=== PATIENT | male | born 1990 | race Caucasian/White ===

== ENCOUNTER 2019-08-01 09:58 | Inpatient (IN) | payer MEDICAID ==
[~2019-08-01] VITALS: Ht 177.8 cm; Wt 68.0 kg
--- NOTE | 2019-08-01 10:15 | NUR ---
PT BIB [facility], FOR METH USE MEDICAL CLEARANCE. PTS MOTHER CALLED 911 DUE TO PT "NOT ACTING RIGHT" POSSIBLE METH USE PT ARRIVED HOME AT 0400 TODAY, PT HAS HX OF METH USE. PT AWAKE ALERT HOWEVER NOT ANSWERING ANY QUESTIONS PT HAS A BLANK STARE AND FOLLOWS SOME COMMANDS AND APPEARS TO BE COOPERATIVE HOWEVER DUE TO SAFETY CONCERNS PT WAS PLACED ON 4 POINT RESTRAINTS BY MEDICS. PT WAS LEFT ON RESTRAINTS FOR THE TIME BEING. VSS AT THIS TIME NSR AWAITING MD OSEGUERA AND ORDERS. PTS MOTHER AND UNCLE CLOSE TO BEDSIDE FOR ANY QUESTIIONS OR CONCERNS.
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
--- NOTE | 2019-08-01 10:47 | NUR ---
IST IV ATTEMPT UNSUCCESSFUL, PT CLENCHED HIS HAND & COCKED BACK HIS WRIST, MAKING IV NON-ADVANCEABLE. PT THEN SPOKE, STATING "JUST GIVE ME WATER OR FOOD OR WHATEVER, I DON'T NEED THIS." THEN STOPPED SPEAKING & WAS MORE COOPERATIVE W/ 2ND ATTEMPT W/ ADDITIONAL STAFF HOLDING HIS ARM STILL.
--- NOTE | 2019-08-01 10:53 | NUR ---
MED PER ORDER. FLUID BOLUS BEGAN.
[2019-08-01 11:04] LABS: PLATELET COUNT 206 x10^3mcL (130-400); RED CELL DISTRIBUTION WIDTH 12.8 % (11.5-14.5)
--- NOTE | 2019-08-01 11:06 | NUR ---
PT NOT ABLE TO URINATE AT THIS TIME. FLUIDS INFUSING AND WILL REASSESS PT
[2019-08-01 11:16] LABS: CALCIUM 9.2 mg/dL (8.5-10.1); CARBON DIOXIDE 27.2 mmol/L (21-32); CHLORIDE SERUM 103 mmol/L (98-107); CREATININE SERUM 0.9 mg/dL (0.7-1.3); GFR1 > 60 mL/min; GLUCOSE SERUM 92 mg/dL (74-106); SODIUM SERUM 140 mmol/L (136-145)
[2019-08-01 11:25] LABS: ALBUMIN 4.2 g/dL (3.4-5.0); ALKALINE PHOSPHATASE 58 U/L (46-116); ALT/SGPT 31 U/L (16-63); AST/SGOT 22 U/L (15-37); BILIRUBIN TOTAL 0.8 mg/dL (0.20-1.00); TOTAL PROTEIN, SERUM 7.6 g/dL (6.4-8.2)
--- NOTE | 2019-08-01 11:40 | NUR ---
PER RENEE MENSAH OK TOE REOMVE ALL RESTRAINTS AT THIS TIME. PT IS CALM AND COOPERATIVE
[2019-08-01 12:23] LABS: microscopic required? NO
[2019-08-01 12:38] LABS: urine erythrocyte NEGATIVE (NEGATIVE)
--- NOTE | 2019-08-01 12:38 | NUR ---
DR MENSAH AT BEDSIDE FOR REEVAL
--- NOTE | 2019-08-01 12:39 | NUR ---
PT PULLED OUT IV. DR MENSAH AWARE AND OK TO LEAVE IV LOCK OUT
[2019-08-01 13:01] LABS: AMPHETAMINE QUAL UR POSITIVE (See below)
--- NOTE | 2019-08-01 13:03 | NUR ---
RAMÓN IM HELD AT THIS TIME AND DR MENSAH AWARE DUE TO PT SLEEPING AT THIS TIME AND FAMILY AT BEDSIDE NOT WANTED RN TO WAKE PT UP
--- NOTE | 2019-08-01 13:12 | NUR ---
PT LAYING IN GURNEY, ASLEEP, EASILY AROUSABLE TO GENTLE STIMULI. PT CALM, COOPERATIVE WITH UPDATING VITAL SIGNS. PT ANSWERING QUESTIONS APPROPRIATELY, BUT IS NOT ORIENTED TO PLACE, ORIENTED TO SELF. ASKED PT HOW HE'S FEELING, PT STATES "I'M POPPIN". PT TURNED BACK OVER IN GURNEY AND CLOSED HIS EYES. RESP E/U, NAD NOTED. AUNT AT BEDSIDE.
--- NOTE | 2019-08-01 13:51 | NUR ---
DR MENSAH SPEAKING WITH PT'S PARENTS AT THE BEDSIDE REGARDING PLAN OF CARE.
--- NOTE | 2019-08-01 13:57 | NUR ---
PT'S PARENTS AND DR. MENSAH AT BEDSIDE TO DISCUSS FURTHER PSYCHIATRIC CARE. INITIALLY PT WAS NOT COOPERATING WITH ANSWERING MD'S QUESTIONS. PT WOULD JUST LAUGH WITH HIS EYES CLOSED, TO FALL BACK ASLEEP. PT'S MOTHER BEGAN TO CRY, PT IMMEDIATELY AWOKE AND OPENED HIS EYES, MADE EYE CONTACT WITH MOTHER, AND STATED "MOM WHAT'S WRONG?". DR. MENSAH DISCUSSING PLAN OF FOR PT TO SPEAK WITH TELE PSYCH, PT AGREED. TELE PSYCH MONITOR SET UP IN ROOM.
--- NOTE | 2019-08-01 14:54 | NUR ---
PTS MOTHER ASKING "HOW LONG IS THIS PROCESS GOING TO TAKE" MOTHER IS ASKING "HOW MANY HOURS DO I HAVE BEFORE ALL OF THIS IS DONE FOR ME TO SLEEP BEFORE I HAVE TO WATCH HIM FOR 24 HRS" I ADVISED MOTHER OF THE INFORMATION DR MENSAH SHARED WITH HER AND THE POC, A TELE PSYCH CONSULT HAS BEEN ORDERED AND WE ARE WAITING FOR THE PSYCHIATRIST TO SPEAK TO PT LONG PT IS WILLING TO COOPERATE AND SPEAK WITH THEM. MOTHER STATED SHE WANTED HELP FOR HER SON I ADVISED MOTHER OF [facility] THAT SHE COULD ALSO DRIVE PT TO [place] IF SHE WOULD LIKE ONCE DR MENSAH DISCHARGED PT. MOTHER SHRUG SHOULDERS AND SAID "HE'S NOT GOING TO GO IN THERE" UNCLE STATES WE HAVE NOT SEEN PTS BEHAVIOR AT HOME AND JUST BECAUSE HE'S CALM HERE DOESN'T MEAN THATS HOW HE REALLY IS. I ADVISED WE CAN NOT HOLD PT AGAINST HIS WILL AND THAT IF PT WAS BEING AGRESSIVE AT HOME THEY SHOULD CALL THE LOCAL POLICE DEPT. PER UNCLE POLICE DID GO TO PTS HOME TODAY BUT "NOTHING WAS DONE". I CALLED [place] [facility]. TO ADVISE DISPATCH FAMILY WOULD LIKE AN OFFICER TO COME TO HOSPITAL TO SPEAK TO THEM REGARDING A POSSIBLE 5150 HOLD, DISPATCH STATED THEY WILL TRY TO GET AN OFFICER TO COME IN AND TALK TO PT AND FAMILY.
--- NOTE | 2019-08-01 15:06 | NUR ---
[employer] OFFIC[employer] [facility] AND OFFICER MARGARITA AT BEDSIDE SPEAKING WITH PT.
--- NOTE | 2019-08-01 15:21 | NUR ---
PT LAYING IN LEFT LATERAL POSITION IN [place]. ASKED PT TO LAY ON HIS BACK TO UPDATE HIS VITALS, PT COOPERATED WITHOUT HESITATION. PT ORIENTED TO SELF AND PLACE, PT UNSURE OF DATE AND STATED "BARACK OBAMA" WHEN ASKED PT WHO THE PRESIDENT WAS. PT ANSWERING ALL QUESTIONS APPROPRIATELY AND OPENING EYES SPONTANEOUSLY.
--- NOTE | 2019-08-01 15:27 | NUR ---
TELE PSYCH PSYCHIATRIST SPEAKING WITH PT AND HIS MOTHER AND UNCLE AT THIS TIME.
--- NOTE | 2019-08-01 15:27 | NUR ---
PER [employer] OFFICER MARGARITA, THEY ARE PREVIOUSLY SPOKE WITH MOTHER REGARDING WRITING A 5150 HOLD. CURRENTLY STATES THAT THEY WILL HOLD OFF ON WRITING THE HOLD AT THIS TIME BECAUSE PT IS CURRENTLY BEING EVALUATED WITH TELEPSYCH.
--- NOTE | 2019-08-01 15:38 | NUR ---
TELEPSYCH CONSULT COMPLETED.
--- NOTE | 2019-08-01 15:41 | NUR ---
5150 HOLD WRITTEN BY [employer]. THEY STATE IT IS PER STATEMENTS MADE BY PT'S MOTHER & THEY ALSO OVERHEARD THE TELEPSYCH MD SAY THAT HE WAS GOING TO RECOMMEND A HOLD. ORIGINAL PLACED ON CHART. ORIGINAL WAS WRITTEN ON A FORM W/ COPIER SMUDGES ON IT & THUS DOES NOT LOOK LIKE AN ORIGINAL. EDUAR CEDILLO VERIFIED W/ ME WHEN THEY HANDED IT TO ME THAT IT IS THE ORIGINAL. POST-IT PLACED ON IT IDENTIFYING IT THE ORIGINAL.
--- NOTE | 2019-08-01 16:18 | NUR ---
PT SITTING UP IN GURNEY, AWAKE, ORIENTED TO SELF AND PLACE, WITH HIS MOTHER AT BEDSIDE.
--- NOTE | 2019-08-01 16:39 | NUR ---
PT'S MOTHER REPORTS THAT SHE IS GOING TO STEP OUT TO CHARGE HER PHONE IN THE CAR. ASKS THAT WE CALL HER IF WE NEED ANYTHING.
--- NOTE | 2019-08-01 17:29 | NUR ---
PT CHANGED INTO PT GOWN BY ZACHARY MCCALLUM. ALL PT BELONGINGS PLACED IN RADIO ROOM IN LABELED BAG. PT LAYING COMFORTABLY IN GURNEY, RESP E/U, CALM AND COOPERATIVE. NAD NOTED.
--- NOTE | 2019-08-01 17:30 | NUR ---
CALLED DELMA IN PHARMACY FOR SEROJACEK.
--- NOTE | 2019-08-01 17:42 | NUR ---
PT MEDICATED PER MD ORDER. PT VERBALIZED UNDERSTANDING OF MEDICATION PRIOR TO ADMINISTRATION.
--- NOTE | 2019-08-01 17:52 | NUR ---
PT GIVEN CRACKERS AT THIS TIME. LET HIM KNOW THAT HIS MOTHER TOLD US THAT SHE WOULD BE GOING TO GET HIM FOOD AND SHOULD RETURN SHORTLY WITH FOOD FOR HIM. SPOKE WITH PT THAT HE HAS BEEN PLACE ON A 72-HOUR 5150 HOLD AT THIS TIME AND EDUCATED PT ON WHAT THAT MEANT. PT VERBALIZED UNDERSTANDING. PT NOTED TO STILL HAVE HIS PERSONAL SOCKS AND PERSONAL HAT ON. PT REQUESTING TO KEEP HAT AND SOCKS ON AT THIS TIME. SPOKE WITH PT IN REGARDS TO KEEPING HIS PERSONAL BELONGINGS AND THE TYPICAL PROTOCOL FOR REMOVING ALL PERSONAL BELONGINGS, PT VERBALIZED UNDERSTANDING BUT ASKING IF HE COULD KEEP HIS HAT AND SOCKS ON. PT AGREED THAT HAT AND SOCKS WOULD NOT BECOME A PROBLEM, AND IF THEY DID HE WOULD BE OKAY WITH US REMOVING THEM. PT SHOWN HOW TO USE CALL LIGHT AND TO OPERATE TV. LIGHTS TURNED DOWN FOR COMFORT. PT REMAINS IN DIRECT SIGHT OF NURSE'S STATION.
--- NOTE | 2019-08-01 18:13 | NUR ---
PT'S MOTHER RISHABH BROUGHT PT BLAZE IN THE BOX. PT SITTING UP IN GURMYSTIC TO EAT. UPDATED MOTHER ON PT'S PLAN OF CARE AND PROCESS OF BEHAVIORAL HEALTH PLACEMENT. MOTHER AGREED TO PLAN OF CARE.
--- NOTE | 2019-08-01 18:26 | NUR ---
MOVED TO BED 3 IN DIRECT OBSERVATION OF NSG STATION.
--- NOTE | 2019-08-01 19:11 | NUR ---
REPORT GIVEN TO ZULEMA CEDILLO, TO ASSUME CARE OF PT.
--- NOTE | 2019-08-01 19:15 | NUR ---
PER MARISSA KEATING PHONE NUMBER FOR CONTACT .
--- NOTE | 2019-08-01 19:15 | NUR ---
PT SLEEPING ON GURNEY IN NAD. PT BREATHING EVEN AND UNLABORED. PT NOTED MOVING AROUND IN GURNEY WITH EASE AND NO ASSISTANCE. PT HAT AND SOCKS REMAIN ON PT AT THIS TIME. VERBAL CONTRACT WITH PT AND MOTHER FOR PT BELONGINGS STILL INTACT, ACKNOWLEDGE THAT ITEMS WILL BE REMOVED IF ITEMS BECOME AN ISSUE. PT EASILY AROUSABLE TO VOICE AND LIGHT TACTILE STIMULI. PT IS COOPERATIVE BUT APPEARS ANXIOUS UPON BEING WOKEN UP. PT ANSWERING SIMPLE QUESTIONS WITH "YES" AND "OKAY". PT DENIES PAIN. CURTAIN OPEN AND ABLE TO VIEW PT FROM NURSING STATION. BED IN LOWEST POSITION. LIGHTS REMAIN OFF FOR PT COMFORT. MOTHER AT BEDSIDE. SAFETY MEASURES IN PLACE. WILL CONTINUE TO MONITOR.
--- NOTE | 2019-08-01 19:20 | NUR ---
PT MOTHER AT BEDSIDE STATING "IM GOING TO TALK TO MY OTHER SON AND GET A BLANKET THEN I WILL COME BACK"
--- NOTE | 2019-08-01 20:28 | NUR ---
PT GOT UP FROM [place] AND NOTED STANDING AT BEDSIDE. PT EATING SANDWHICH AND NOTED DRINKING MILK. PT BEGAN WALKING OUT OF ROOM. ASKED PT IS HE NEEDED ASSISTANCE. PT POINTING AT A DIFFERENT PTS BED. PT REDIRECTRED TOWARDS ROOM AND PT GOT BACK IN GURNEY WITH NO ASSISTANCE. PT STATING "YOU THINK I COULD GET SOME CRACKERS". PT LAYING ON GURNEY IN NAD, BREATHING EVEN AND UNLABORED. PT AWAKE AND ALERT, SPEECH IS CLEAR. PT PROVIDED WITH CRACKERS AT THIS TIME. WILL CONTINUE TO MONITOR. BED IN LOWEST POSITION. CURTAIN OPEN AND ABLE TO VISUALIZE PT FROM NURSING STATION. SAFETY MEASURES IN PLACE.
--- NOTE | 2019-08-01 21:31 | NUR ---
PT MOTHER AT BEDSIDE. PT MOTHER ASKING "IF HE WAKES UP WHEN IM HERE IS IT OKAY IF I WASH HIS FEET AND CHANGE HIS SOCKS". PROVIDED HYGIENE WIPES TO MOTHER. MOTHER EXPRESSED GRATITUDE. PT SLEEPING IN NAD. CURTAIN OPEN AND ABLE TO VISUALIZE PT FROM NURSING STATION. BED IN LOWEST POSITION. SAFETY MEASURES IN PLACE. WILL CONTINUE TO MONITOR.
--- NOTE | 2019-08-01 21:45 | NUR ---
PT MOTHER USING HYGIENE WIPES TO CLEAN PTS FEET AT THIS TIME. MOTHER PLACED SOCKS BACK ON PT.
--- NOTE | 2019-08-01 22:08 | NUR ---
PT RESTING ON GURNEY, AWAKE AND ALERT. PT SPEAKING FULL CLEAR SENTENCES. PT ANSWERING QUESTIONS APPROPRIATELY. PT MOTHER STATES "IM GOING ON ANOTHER FOOD RUN". PT STATES "SHES GOING TO BLAZE IN THE BOX, I EAT ALOT". PT IS CALM AND COOPERATIVE. CURTAIN OPEN AND ABLE TO VISUALIZE FROM NURSING STATION. BED IN LOWEST POSITION. WILL CONTINUE TO MONITOR.
--- NOTE | 2019-08-01 23:40 | NUR ---
PT SITTING UP IN BED EATING BLAZE IN THE BOX THAT WAS BROUGHT IN BY MOTHER. PT IS CALM AND COOPERATIVE. BREATHING EVEN AND UNLABORED. PT AWAKE AND ALERT, SPEECH IS CLEAR. MOTHER AT BEDSIDE. CURTAIN OPEN AND ABLE TO VISUALIZE PT FROM NURSING STATION. BED IN LOWEST POSITION. WILL CONTINUE TO MONITOR.
--- NOTE | 2019-08-01 23:56 | NUR ---
PT REQUESTING MEDICATION FOR ANXIETY. MD GÓMEZ MADE AWARE. AWAITING NEW ORDERS AT THIS TIME
--- NOTE | 2019-08-02 00:21 | NUR ---
PER DR GÓMEZ, PT WILL RECEIEVE RECOMMENED SEROQUEL Q 8 HOURS BUT HE WILL NOT ORDERS OTHER MEDICATION WHEN PT IS ASKING "I NEED ANXIETY MEDICATION". M0THER INFORMED OF DOCTORS PLAN OF CARE AND THAT WE ARE STILL WAITING FOR PLACEMENT. PT MOTHER STATES SHE IS LEAVING FOR THE NIGHT AND WILL RETURN IN THE MORNING OR IF PT GETS PLACEMENT AND REQUESTS TO BE CALLED IF PLACEMENT IS FOUND AND PRIOR TO TRANSFER. PT IS SLEEPING IN NAD, BREATHING EVEN AND UNLABORED. CURTAIN OPEN AND ABLE TO VISUALIZE PT FROM NURSING STATION. BED IN LOWEST POSITION. WILL CONTINUE TO MONITOR.
--- NOTE | 2019-08-02 01:30 | NUR ---
PT SLEEPING ON GURNEY IN NAD, EASILY AROUSABLE. PT IN NAD, BREATHING EVEN AND UNLABORED. PT OBSERVED MOVING AROUND ON GURNEY WITH NO ASSISTANCE. SAFETY MEASURES IN PLACE. WILL CONTINUE TO MONITOR. CURTAIN OPEN, ABLE TO VISUALIZE PT FROM NURSING STATION. BED IN LOWEST POSITION.
--- NOTE | 2019-08-02 02:15 | NUR ---
PT MEDICATED PER MD ORDERS. PT EASILY AROUSABLE AND IS CALM AND COOPERATIVE. PT ANSWERING SIMPLE QUESTIONS APPROPRIATELY. BREATHING EVEN AND UNLABORED. SPEECH REMAINS CLEAR. MOTHER LEFT BEDSIDE. PT LAID BACK DOWN AFTER MEDICATION ADMINISTRATION AND IS NOTED SLEEPING IN RIGHT SIDE LAYING POSITION. ASKED PT IF HE WANTED A WARM BLANKET AND PT STATES "NO IM OKAY". BED IN LOWEST POSITION. CURTAIN OPEN AND ABLE TO VISUALIZE PT FROM NURSING STATION. SAFETY MEASURES IN PLACE. WILL CONTINUE TO MONITOR.
--- NOTE | 2019-08-02 03:22 | NUR ---
PT AMBULATED TO RESTROOM WITH STEADY GAIT ACCOMPANIED BY ME. PT AMBULATED BACK TO BED 3 AT THIS TIME. PT NOTED SLEEPING IN NAD. BREATHING EVEN AND UNLABORED. CURTAIN OPEN AND ABLE TO VISUALIZE FROM NURSING STATION. BED IN LOWEST POSITION. WILL CONTINUE TO MONITOR.
--- NOTE | 2019-08-02 04:50 | NUR ---
PT EASILY AROUSABLE AND SPEAKING CLEARLY. PT FOLLOWING SIMPLE COMMANDS AND REMAINS CALM AND COOPERATIVE. PT SLEEPING IN NAD, BREATHING EVEN AND UNLABORED. CURTAIN OPEN AND ABLE TO VISUALIZE PT FROM NURSING STATION. BED IN LOWEST POSITION. SAFETY MEASURES IN PLACE. WILL CONTINUE TO MONITOR.
--- NOTE | 2019-08-02 05:40 | NUR ---
PT NOTED MOVING AROUND ON GURNEY WITHOUT ASSISTANCE. PT SLEEPING, BREATHING EVEN AND UNLABORED. PT EASILY AROUSABLE. ABLE TO VISUALIZE PT FROM NURSING STATION. WILL CONTINUE TO MONITOR.
--- NOTE | 2019-08-02 06:50 | NUR ---
PT SLEEPING ON GURNEY IN NAD, EASILY AROUSABLE. PT IS CALM AND COOPERATIVE. SPEECH IS CLEAR. CURTAIN OPEN AND ABLE TO VISUALIZE PT FROM NURSING STATION. PT BREATHING EVEN AND UNLABORED. WILL CONTINUE TO MONITOR.
--- NOTE | 2019-08-02 07:25 | NUR ---
REPORT RECEIVED FROM ZULEMA CEDILLO, TO ASSUME CARE OF PT.
--- NOTE | 2019-08-02 08:22 | NUR ---
TELE PSYCH AT END OF BED FOR EVALUATION. MOTHER AT BEDSIDE. PT EASILY AROUSABLE WITH VERBAL STIMULI. PT NOT WANTING TO ANSWER ANY QUESTIONS AT THIS TIME. MOTHER STS THAT PT DID VERBALIZE THAT HE WANTED TO HARM HIMSELF BUT NOT OTHERS. PT PROVIDED BREAKFAST AND STS THAT HE WANTS IT BUT CANNOT EAT IT RIGHT NOW. WILL CONTINUE TO MONITOR. VSS. RESP E/U. WILL CONTINUE TO MONITOR.
--- NOTE | 2019-08-02 08:50 | NUR ---
TELE PSYCH IN PROGRESS.
--- NOTE | 2019-08-02 09:16 | NUR ---
TELE PSYCH COMPLETE.
--- NOTE | 2019-08-02 09:27 | NUR ---
SPOKE TO PSYCH DR. QUINTANILLA AND IS CONTINUING THE HOLD. DR. MIRELES MADE AWARE.
--- NOTE | 2019-08-02 10:59 | NUR ---
XRAY AT BEDSIDE.
--- NOTE | 2019-08-02 11:08 | NUR ---
ADMITING DOCTOR AT BEDSIDE FOR MSE. PT NOT ANSWERING ANY QUESTIONS AT THIS TIME BUT HAS EYES OPEN AND ARMS CROSSED ACROSS CHEST.
--- NOTE | 2019-08-02 12:48 | NUR ---
PT PROVIDED WITH LUNCH TRAY. PTS FAMILY AT BEDSIDE PT IN NO DISTRESS LYING IN BED COMFORTABLY.
--- NOTE | 2019-08-02 16:00 | NUR ---
MOTHER AND PT REFUSING MEDICATION AT THIS TIME.
--- NOTE | 2019-08-02 18:14 | NUR ---
DR. HOFFMAN MADE AWARE OF PT REFUSAL. MOTHER INFORMED PT WILL BE TAKEN UPSAIRS AT CHANGE OF SHIFT.
--- NOTE | 2019-08-02 18:40 | NUR ---
PT REFUSING ALL MEDS AND LAB DRAWS. DR. KWAN MADE AWARE.
--- NOTE | 2019-08-02 19:02 | NUR ---
REPORT GIVEN TO BHARGAVI CEDILLO, TO ASSUME CARE OF THIS PT.
--- NOTE | 2019-08-02 19:30 | NUR ---
RECEIVED PT FROM ED VIA [facility], PT IS AWAKE AN ALERT BUT REFUSES TO ANSWER ANY QUESTIONS. NO S/S OF PAIN AND SOB NOTED. NO IV ACCESS AT THIS TIME. PT REFUSED TO BE ASSESSED, REFUSED TO HAVE IV INSERTION, AND REFUSED MRSA SWAB. PT'S MOTHER AT BEDSIDE. SIDE RAILS UPX2. CALL LIGHT ON REACH. HOB ELEVATED AT 30 DEG. SITTER AT BEDSIDE. PRIMARY NURSE FLY AT BEDSIDE FOR CONTINUITY OF CARE
[2019-08-02 19:47] VITALS: BP 102/55
[2019-08-02 19:53] VITALS: Ht 177.8 cm; Wt 68.0 kg
--- NOTE | 2019-08-02 20:32 | NUR ---
PT REFUSED IV INSERTION AND MRSA SWAB , DR JIANG MADE AWARE.SITTER AT THE BEDSIDE FOR SAFETY. WILL CONTINUE TO MONITOR.
--- NOTE | 2019-08-02 21:30 | NUR ---
RESTING QUIETLY IN BED AT THIS TIME, WITH EYES CLOSED, APPEARS ASLEEP, EASILY AROUSABLE. NO ACUTE DISTRESS NOTED. SITTER AT THE BEDSIDE FOR SAFETY. WILL CONTINUE TO MONITOR.
[2019-08-03 04:45] VITALS: BP 101/52
--- NOTE | 2019-08-03 06:10 | NUR ---
ATTEMPTED TO RE-INSERT IV, PT REFUSED, NO IV ACCESS. DR JIANG AWARE. REMAINS ON 5150 HOLD, SITTER AT THE BEDSIDE FOR SAFETY. NO COMPLAINTS OR VERBAL RESPONSE NOTED. RESP. EVEN AND UNLABORED. NO ACUTE DISTRESS NOTED. VOIDING FREELY. WILL CONTINUE TO MONITOR.
--- NOTE | 2019-08-03 07:12 | NUR ---
RECEIVED PT FROM THERMAL CUTTING TRACER MACHINE OPERATOR NURSE. PT RESTING IN BED, AWAKE BUT NOT RESPONDING VERBALLY TO QUESTIONS AT THIS TIME. NO SIGNS OF ACUTE DISTRESS NOTED. NO IV ACCESS, INFORMED BY THERMAL CUTTING TRACER MACHINE OPERATOR NURSE THAT DOCTOR IS AWARE. BED IN LOWEST POSITION AND CALL LIGHT WITHIN REACH. SITTER AT BEDSIDE. WILL CONTINUE TO MONITOR.
[2019-08-03 09:34] VITALS: BP 98/52
--- NOTE | 2019-08-03 12:32 | NUR ---
PT SITTING UPRIGHT IN BED HAVING LUNCH, AWAKE/ALERT, RESP E/U ON RA. PT STILL REMAINS VERBALLY UNRESPONSIVE, CALM AT THE MOMENT, NO ACUTE DISTRESS NOTED. BED IN LOWEST POSITION AND CALL LIGHT WITHIN REACH. SITTER AT BEDSIDE. WILL CONTINUE TO MONITOR.
--- NOTE | 2019-08-03 14:23 | NUR ---
Discount pharmacy card and list to low cost medical clinics given to patient by Jenny Antoine.
--- NOTE | 2019-08-03 17:55 | NUR ---
PT IN BED SLEEPING, AROUSABLE, RESP E/U ON RA. NO SIGNS OF ACUTE DISTRSS NOTED AT THIS TIME. PT REMAINS W/ NO IV ACCESS. BED IN LOWEST POSITION AND CALL LIGHT WITHIN REACH. SITTER AT BEDSIDE. WILL ENDORSE TO ONCOMING NURSE.
--- NOTE | 2019-08-03 20:00 | NUR ---
RECEIVED PT IN BED, RESTING QUIETLY. NO VERBAL RESPONSE AT THIS TIME. ON 5150 HOLD, SITTER AT THE BEDSIDE FOR SAFETY. RESP. EVEN AND UNLABORED. NO ACUTE DISTRESS NOTED. REFUSED VITAL SIGNS CHECK. NO EVIDENCE OF ANY DISCOMFORT NOTED. ABLE TO MOVE ALL EXTS. NO IV ACCESS, REFUSED INSERTION. MD AWARE.WILL CONTINUE TO MONITOR.
--- NOTE | 2019-08-03 21:45 | NUR ---
AWAKE, REQUESTING MEDICATION FOR ANXIETY. DR MANN NOTIFIED. ATIVAN PO GIVEN ORDERED. WILL CONTINUE TO MONITOR.
--- NOTE | 2019-08-03 23:25 | NUR ---
PT REFUSED HAVE V/S TAKEN NURSE BILL AWARE .
--- NOTE | 2019-08-04 02:35 | NUR ---
EYES CLOSED, APPEAR ASLEEP, EASILY AROUSABLE. RESP. EVEN AND UNLABORED. NO ACUTE DISTRESS NOTED. WILL CONTINUE TO MONITOR.
--- NOTE | 2019-08-04 06:17 | NUR ---
SLEPT WELL. STILL NON COMPLIANT WITH CARE. RESP. REFUSED VS CHECK. REMAINS ON 5150 HOLD, SITTER AT THE BEDSIDE FOR SAFETY. NO COMPLAINTS NOTED AT THIS TIME. NO EVIDENCE OF ANY DISCOMFORT NOTED AT THIS TIME. WILL CONTINUE TO MONITOR.
--- NOTE | 2019-08-04 08:32 | NUR ---
At 0720, recieved patient from night nurse. Patient appears to be resting with eyes closed. One to one sitter with patient. At 0815, patient is awake, alert, and unable to guage orientation as patient is staring at nurse. No verbal response to questions or comments. Has not eaten breakfast. Continuing to observe closely.
--- NOTE | 2019-08-04 12:01 | NUR ---
Initial Nutrition Assessment: 246/B MARCH PIERO IA HR Dx: Suicidal, danger to self, 5150 PMHx: Schizophrenia PSHx: none Labs: (08/01) ALK P 58H Meds: Colace, morphine, norco, zofran Diet: Regular PO Intake: (08/03) breakfast 90% Ht: 177.8 cm (70") Wt: 68 kg (149#) BMI: 21.5 kg/m2 Bed scale: 68 kg IBW: 166# (75 kg) %IBW: 89 UBW: unable to access Age: 28/M Food Allergies: NKFA Skin: intact Von: 21 Edema: none GI: Last BM: unknown Per H&P, Pt is a 28 years old with PMH of schizophrenia who brought in by EMS due to altered mental status today. The patient has a history of meth addiction and heroin abuse for ~14 years. RDN Visit (08/04): Patient was not ready to respond or communicate with me. Per sitter, patient refuses everything, even vital signs. Per sitter, patient has had only of his milk for breakfast this morning. Per RN Jerilyn, patient refuses to talk with everyone and therefore she is not aware about symptoms likes N/V/D/C. Problem with: N/V/D/C: unable to access Problems with: Chewing/Swallowing: unable to access Current appetite: unable to access Recent wt change: unable to access %wt change: N/A Vitamin/Supplement use: unable to access Special diet at home: unable to access Physical activity: unable to access Nutrition education given: not possible at this time as patient refuses to talk, does not reply Food-drug interactions: Colace- high fiber w/1086-9443 ml fluids Education given: n/a Estimated Nutritional Needs Based on current body weight 68 kg Energy: 4194-1250 kcal/d (25-30 kcal/kg) Protein: 68-82 g/d (1.0-1.2 g/kg) - preserve LBM Fluid: 4649-3566 ml/d (1 ml/kcal) or per doctor Nutrition Diagnosis 1. Inadequate oral intake related to patient not wanting to eat, possible poor appetite as evidenced by report from sitter. Intervention 1. Recommend continuing regular diet at this time. Monitor/Evaluate Goal: PO intake at least 75% of estimated needs Monitor: PO intake, Labs, GI function F/U in 3-5 days as moderate risk
--- NOTE | 2019-08-04 12:01 | NUR ---
1. Recommend continuing regular diet at this time.
--- NOTE | 2019-08-04 16:11 | NUR ---
PATIENT REMAINS QUIET. NO SPEAKING. DRINKING WATER AND FLUIDS BUT REFUSING TO EAT. AMBULATES TO BATHROOM FOR TOILET NEEDS. CONTINUING TO OBSERVE PATIENT CLOSELY.
--- NOTE | 2019-08-04 16:46 | NUR ---
PATIENT ASKED IF HIS MOTHER WAS GOING TO BE COING IN TODAY. HE SAID THAT HE WOULD LIKE HER TO COME IN. CALLED PATIENT'S MOTHE PER PHONE; SHE SPOKE BRIEFLY WITH PATIENT. PATIENT REQUESTED ANXIETY MEDICATION. CONTACTING VETERINARY PRACTICE MANAGER KAPIL FOR ORDERS. PATIENT HAS REFUSED VITAL SIGNS ASSESSMENT. PULLS COVERS OVER HEAD AT TIMES WHEN APPROACHED.
--- NOTE | 2019-08-04 18:00 | NUR ---
At 1730 patient's mother in room. Patient ate outside food brought in by mother. Refused all meds. Refused vital sign checks. Did not want to take Ativan even though he had requested antianxiety medication earlier. Ambulates to bathroom for toilet needs. Remains withdrawn, refusing to speak. Patient's mother is in room and crying. Will endorse care to night nurse.
--- NOTE | 2019-08-04 19:00 | NUR ---
REPORT RECEIVED FROM DAY SHIFT RN. PATIENT WAS SEEN AND IS RESTING COMFORTABLY IN BED W/ MOTHER AND SITTER AT BEDIDE. PATIENT IS REFUSING TO SPEAK. WHEN SPOKEN TO, PATIENT JUST STARES. NO APPARENT DISTRESS NOTED. BREATHING EVEN AND UNLABORED ON ROOM AIR. NO SOB OR RESP DISTRESS NOTED. NO INDICATONS OF CHEST PAIN. NO IV ACCESS. PATIENT IS REFUSING. PATIENT IS EATING AT THIS TIME. COMFORT AND SAFETY MEASURES IN PLACE. CALL LIGHT IS WITHIN REACH. BED IS LOCKED AND IN THE LOWEST POSITION. WILL CONTINUE TO MONITOR.
--- NOTE | 2019-08-04 19:45 | NUR ---
DR DAVIS IN TO SEE PATIENT
--- NOTE | 2019-08-04 21:03 | NUR ---
PATIENT REFUSING SCHEDULED ATIVAN PO. TRIED TO WAKE PATIENT UP. PATIENT JUST IGNORED AND TURNED AWAY. NO DISTRESS NOTED. BREATHING EVEN. SITTER AT BEDSIDE. SAFETY MEASURES IN PLACE. CALL LIGHT IS WITHIN REACH. WILL CONTINUE TO MONITOR.
--- NOTE | 2019-08-04 22:14 | NUR ---
PATIENT IS NOW REQUESTING ATIVAN. ADMINISTERED SCHEDULED ATIVAN PRESCRIBED. NO DISTRESS NOTED. CALL LIGHT WITHIN REACH. SITTER AT BEDSIDE. SAFETY MEASURES IN PLACE. WILL CONTINUE TO MONITOR.
--- NOTE | 2019-08-05 00:11 | NUR ---
RESTING IN BED W/ EYES CLSOED. NO DISTRESS NOTED. BREATHING EVEN AND UNLABORED. NO SOB NOTED. SAFETY MEASURES IN PLACE. SITTER AT BEDSIDE. CALL LIGHT IS WITHIN REACH. WILL CONTINUE TO MONITOR.
--- NOTE | 2019-08-05 02:34 | NUR ---
RESTING IN BED WITH EYES CLOSED. NO DISTRESS NOTED. BREATHING EVEN AND UNLABORED. NO SOB OR RESP DISTRESS NOTED. SITTER AT BEDSIDE. CALL LIGHT IS WITHIN REACH. WILL CONTINUE TO MONITOR.
--- NOTE | 2019-08-05 05:19 | NUR ---
REFUSED AM V/S TO BE TAKEN
--- NOTE | 2019-08-05 05:49 | NUR ---
RESTED IN LONG INTERVALS THROUGHOUT THE NIGHT. NO ACUTE CHANGES NOTED. PATIENT REMAINS TO NOT SPEAK. NONCOMPLIANT WITH CARE. REFUSED LABS AND V/S. NO IV ACCESS. BREATHING EVEN AND UNLABORED ON ROOM AIR. NO SOB NOTED. NO INDICATIONS OF CHEST PAIN OR PAIN. SITTER AT BEDSIDE. COMFORT AND SAFETY MEASURES IN PLACE. BED IS LOCKED AND IN THE LOWEST POSITION. SIDE RAILS UP X2. CALL LIGHT IS WITHIN REACH. WILL ENDORSE CARE TO DAY SHIFT RN.
--- NOTE | 2019-08-05 06:33 | NUR ---
RESTED IN LONG INTERVALS THROUGHOUT THE NIGHT. NO ACUTE CHANGES NOTED. PATIENT REMAINS TO NOT SPEAK. NONCOMPLIANT WITH CARE. REFUSED V/S. NO IV ACCESS. BREATHING EVEN AND UNLABORED ON ROOM AIR. NO SOB NOTED. NO INDICATIONS OF CHEST PAIN OR PAIN. SITTER AT BEDSIDE. COMFORT AND SAFETY MEASURES IN PLACE. BED IS LOCKED AND IN THE LOWEST POSITION. SIDE RAILS UP X2. CALL LIGHT IS WITHIN REACH. WILL ENDORSE CARE TO DAY SHIFT RN.
--- NOTE | 2019-08-05 07:52 | NUR ---
Recieved patient from night nurse at 0710. Patient was sleeping with regular respirations. Patient continues to remain noncommunicative. At 0730 patient ate breakfast and showered. Patient continues to refuse vital signs and is not speaking.
--- NOTE | 2019-08-05 10:58 | NUR ---
AT 0900 - PATIENT REMAINS NON-VERBAL. LOOKING DIRECTLY AT STAFF BUT NOT ACKNOWLEDGING ANY QUESTIONS AND NOT RESPONDING VERBALLY. HAS NOT TAKEN SCHEDULED MORNING MEDICATIONS. REFUSING VITAL SIGNS.
[2019-08-05] MEDS ORDERED: LEXAPRO10 MG PO (11:00)
[2019-08-05 13:38] VITALS: BP 98/52
--- NOTE | 2019-08-05 14:58 | NUR ---
AT 1330 - PATIENT'S MOTHER IN ROOM. SPOKE WITH HER ABOUT CURRENT PLAN OF CARE. PATIENT HAS EATEN LUNCH. GOOD PO FLUID INTAKE. GOES TO BATHROOM FREQUENTLY.
--- NOTE | 2019-08-05 17:05 | NUR ---
[facility]
--- NOTE | 2019-08-05 17:14 | NUR ---
Packet faxed to Ashley at [facility]. No beds, but info faxed for wait-list.
--- NOTE | 2019-08-05 17:19 | NUR ---
Called regi Tohmas/maru Keenan. No beds.
--- NOTE | 2019-08-05 17:22 | NUR ---
Called Awilda Mathur s/w Arielle. Per Arielle, they cannot take inpatient referrals. Refferal must come from Outpatient clinic or an ER.
--- NOTE | 2019-08-05 18:02 | NUR ---
PATIENT WATCHING TV. STIL NOT SPEAKING TO NURSING STAFF BUT ACCORDING TO 1:1 SITTER PATIENT WAS SPEAKING WITH HIS MOTHER DURING HER STAY. PATIENT IS AWAKE BUT REMAINS VERBALLY UNCOMMUNICATIVE. APPEARS CALM. TAKING PO FOOD AND FLUIDS. AMBULATES TO BATHROOM FOR TOILET NEEDS. WILL ENDORSE CARE TO NIGHT NURSE.
--- NOTE | 2019-08-05 19:00 | NUR ---
REPORT RECEIVED FROM DAY SHIFT RN. PATIENT WAS SEEN AND IS RESTING COMFORTABLY IN BED. NO DISTRESS NOTED. BREATHING EVEN AND LABORED ON ROOM AIR. NO SOB NOTED. NONCOMMUNICATIVE. STARES WHEN SPOKEN TO. NO INDICATIONS OF CHEST PAIN/PRESSURE OR PAIN NOTED. NO IV ACCESS; PATIENT REFUSED. SITTER AT BEDSIDE. PATIENT EATING AND TOLERATING FLUIDS WELL. COMFORT AND SAFETY MEASURES IN PLACE. BED IS LOCKED AND IN THE LOWEST POSITION. SIDE RAILS UP X2. CALL LIGHT IS WITHIN REACH. WILL CONTINUE TO MONITOR.
--- NOTE | 2019-08-06 01:46 | NUR ---
RESTING IN BED W/ EYES CLOSED. NO DISTRESS NOTED. BREATHING EVEN AND UNLABORED ON ROOM AIR. NO SOB NOTED. SITTER AT BEDSIDE. NO S/S OF PAIN NOTED. SAFETY MEASURES IN PLACE. CALL LIGHT IS WITHIN REACH. WILL CONTINUE TO MONITOR.
--- NOTE | 2019-08-06 03:46 | NUR ---
RESTING IN BED WITH EYES CLOSED ON RIGHT SIDE. NO DISTRESS NOTED. BREATHING EVEN AND UNLABORED ON ROOM AIR. NO SOB NOTED. NO S/S OF PAIN NOTED. SAFETY MEASURES IN PLACE. SITTER AT BEDSIDE. CALL LIGHT IS WITHIN REACH. WILL CONTINUE TO MONITOR.
--- NOTE | 2019-08-06 06:22 | NUR ---
RESTED IN LONG INTERVAL THROUGHOUT THE NIGHT. NO ACUTE CHANGES NOTED. BREATHING EVEN AND UNLABORED ON ROOM AIR. NO SOB NOTED. NO S/S OF PAIN NOTED. PATIENT DRANK FLUIDS THROUGHOUT THE NIGHT AND AMBULATED WITH A STEADY GAIT TO THE RESTROOM. SITTER AT BEDSIDE. NON-COMMUNICATIVE. SAFETY MEASURES IN PLACE. CALL LIGHT IS WITHIN REACH. WILL ENDORSE CARE TO DAY SHIFT RN.
--- NOTE | 2019-08-06 06:31 | NUR ---
There was no update on bed placement through out NOC shift. Will endorse to oncoming AM shift.
--- NOTE | 2019-08-06 07:24 | NUR ---
[facility] still actively working on finding placement for this pt. No openings overnight. Will contact with any updates.
--- NOTE | 2019-08-06 07:25 | NUR ---
RECEIVED PT FROM NIGHT NURSE. PT IS LAYING DOWN IN BED RESTING WITH EYES CLOSED. PT LOOKS TO BE IN NO ACUTE DISTRESS. RESPRIATIONS EVEN AND UNLABORED ON ROOM AIR. NO IV ACCESS, DREd AWARE. BED IN LOWEST POSITION, MAX LIGHT WITHIN REACH. SITTER AT BEDSIDE. WILL CONTINUE TO MONITOR.
--- NOTE | 2019-08-06 09:45 | NUR ---
PT REQUESTING TO HAVE ATIVAN AND A TOWEL TO CLEAN UP. PT IS LAYING DOWN IN BED WITH RN CAME TO BEDSIDE. PT REFUSED ALL OTHER MEDICATIONS BESIDES ATIVAN AND REFUSED ASSESSMENT. PT REFUSED TO FOLLOW COMMANDS AND REFUSED TO SPEAK. PT LOOKS TO BE IN NO ACUTE DISTRESS AT THIS TIME. SITTER AT BEDSIDE. WILL CONTINUE TO MONITOR.
--- NOTE | 2019-08-06 10:49 | NUR ---
PT REFUSED VITAL SIGNS. PT EDUCATED UPON REFUSAL
--- NOTE | 2019-08-06 10:50 | NUR ---
Called osman Thomas. No male beds at this time.
--- NOTE | 2019-08-06 10:53 | NUR ---
No new update from [facility]. Will follow up later.
--- NOTE | 2019-08-06 11:02 | NUR ---
Packet faxed to Kerwin at [facility]. There are no beds at this time. Pt will be put on wait-list.
--- NOTE | 2019-08-06 13:50 | NUR ---
PT IS LAYING DOWN IN BED WITH HOB UP. PT CONTINUES TO REFUSE TO SPEAK TO STAFF AND REFUSES TO FOLLOW COMMANDS. PT LOOKS TO BE IN NO ACUTE DISTRESS. RESPIRATIONS EVEN AND UNLABORED ON ROOM AIR. BED IN LOWEST POSITION, CALL LIGHT WITHIN REACH, SITTER AT BEDSIDE. WILL CONTINUE TO MONITOR.
--- NOTE | 2019-08-06 18:34 | NUR ---
PT IS LAYING DOWN IN BED WITH EYES CLOSED. PT LOOKS TO BE IN NO ACUTE DISTRESS AT THIS TIME. PT REFUSES TO RESPOND TO COMMANDS OR WHEN SPOKEN TO. RESPIRATIONS EVEN AND UNLABORED ON ROOM AIR. NO IV SITE, PT REFUSED IV, DR. RICHARD. BED IN LOWEST POSITION, CALL LIGHT WITHIN REACH. SITTER AT BEDSIDE. WILL ENDORSE TO ONCOMING SHIFT.
--- NOTE | 2019-08-06 19:30 | NUR ---
REC'D REPORT FROM JABIER CEDILLO TO ASSUME CARE. PT SEEN LYING IN BED WITH EYES CLOSED. PT REFUSES TO TALK. PT CALM BUT UNCOOPERATIVE. REFUSES TO BE ASSESSED. OPENS EYES SPONTANEOUSLY. RESPS E/U ON ROOM AIR. CHEST RISE EQUAL AND SYMMETRICAL. NO S/SX OF PAIN PER FLACC SCALE. NO IV SITE, PT REFUSED, MD AWARE. FALL PRECAUTIONS AND MAINTAINED. 1:1 SITTER AT BEDSIDE. WILL CONTINUE TO MONITOR.
--- NOTE | 2019-08-06 20:19 | NUR ---
Change of shift report given will continue to help facilitate placement
--- NOTE | 2019-08-06 21:00 | NUR ---
PT ASKED FOR ATIVAN PO. ROUTINE ATIVAN GIVEN AT THIS TIME. PT STILL REFUSES TO SPEAK OR REFUSES TO BE ASSESSED.
--- NOTE | 2019-08-06 22:45 | NUR ---
R HAND IV INFILTRATED, PT WITH C/O PAIN AND BURINING SENSATION WHEN FLUSHED WITH 10CC NS. REDNESS NOTED ABOVE SITE. IV DC'D WITH ANGIO CATH INTACT. BLEEDING CONTROLLED. WILL REINSERT NEW IV.
--- NOTE | 2019-08-07 02:23 | NUR ---
PT SEEN SLEEPING BUT EASILY AROUSABLE. NO S/SX OF PAIN PER FLACC SCALE. SITTER AT BEDSIDE.
--- NOTE | 2019-08-07 05:47 | NUR ---
GRAVEL HAULER REPORTED PT REFUSED VITAL SIGNS. NO SIGNS OF DISTRESS NOTED. RESPS E/U. PT AWAKE WITH EYES OPEN. CHEST RISE EQUAL AND SYMMETRICAL.
--- NOTE | 2019-08-07 07:20 | NUR ---
RECEIVED PT FROM POOL FINISHER NURSE. PT WAS SLEEPING THEN UP TO RESTROOM AT THIS TIME, GAIT BALANCED AND STEADY. PT W/ NO IV ACCESS, IS AWARE. ON 5150 HOLD W/ SITTER AT BEDSIDE. WILL CONTINUE TO MONITOR.
--- NOTE | 2019-08-07 08:45 | NUR ---
[facility] is still actively working on finding placement for this pt. Will continue to f/u with facilities. Will contact with any updates.
--- NOTE | 2019-08-07 12:18 | NUR ---
PT IN BED SLEEPING, AROUSABLE, RESP E/U ON RA. NO SIGNS OF ACUTE DISTRESS NOTED. BED IN LOWEST POSITION AND CALL LIGHT WITHIN REACH. SITTER AT BEDSIDE. WILL CONTINUE TO MONITOR.
--- NOTE | 2019-08-07 18:10 | NUR ---
PT RESTING IN BED WATCHING TV, AWAKE/ALERT, STILL NO VERBAL RESPONSES FROM PT. RESP E/U ON RA, NO SIGNS OF DISTRESS NOTED. BED IN LOWEST POSITION AND CALL LIGHT WITHIN REACH, SITTER AT BEDSIDE. WILL ENDORSE TO ONCOMING NURSE.
--- NOTE | 2019-08-07 19:20 | NUR ---
AWAKE AND ALERT, WATCHING TV WITH FAMILY MEMBERS IN ROOM. BREATHING EVEN AND UNLABORED ON ROOM AIR. NO GRIMACING OR OTHER SIGNS OF PAIN NOTED. PT IS SELECTIVELY MUTE. WILL NOT RESPOND TO QUESTIONS. CALL LIGHT WITHIN EASY REACH.
--- NOTE | 2019-08-07 21:21 | NUR ---
PT REFUSED HAVING VITAL SIGNS TAKEN. REFUSED DUE MEDICATIONS.
--- NOTE | 2019-08-07 22:44 | NUR ---
family members had earlier left. pt has eyes closed, breathing even and unlabored. earlier attempted to converse with pt, pt still refusing talk. sitter in room.
--- NOTE | 2019-08-07 23:20 | NUR ---
INFORMED DR. HERNANDEZ PT REFUSING VITAL SIGNS AND MEDICATIONS.
--- NOTE | 2019-08-08 01:20 | NUR ---
PT REFUSED TO HAVE ARM BAND SCANNED. NO IV ACCESS. PT HAS BEEN REFUSING. PHYSICIANS AWARE
--- NOTE | 2019-08-08 02:05 | NUR ---
PT TOLD SITTER HE WOULD LIKE HIS ANXIETY MEDICATION. ATIVAN PO ADMINISTERED WHICH THE PT EARLIER REFUSED. PT TOOK MEDICATION.
--- NOTE | 2019-08-08 02:57 | NUR ---
eyes closed, breathing even and unlabored on room air. bed in lowest position. upper side rails kept raised. sitter in room. rr 17/min.
--- NOTE | 2019-08-08 06:08 | NUR ---
eyes closed, breathing even and unlabored on room air. sitter in room.
--- NOTE | 2019-08-08 07:11 | NUR ---
AWAKE, AMBULATED TO RESTROOM WITH STEADY GAIT, STILL SELECTIVELY MUTE. LATEST HOLD ORDER FAXED [facility] WITH CONFIRMATION. SITTER IN ROOM.
--- NOTE | 2019-08-08 07:13 | NUR ---
ENDORSED TO NURSE PAUL
--- NOTE | 2019-08-08 07:30 | NUR ---
PT ENDORSE TO ME THIS MORNING. PT SITTING UP IN BED/ ASK HOW HE WAS FEELING/ NO RESPONSE. STOOD UP AND WALKED TO THE BATHROOM. REMAINS ON 5150 HOLD/ 1:1 AT BEDSIDE. BREATHING EVEN AND UNLABORED ON RA/ NO ACUTE RESP DISTRESS OR SOB NOTED. VOIDS FREELY, AMB. PT CURRENTLY REFUSING IV IN-SERTION. CALL LIGHT IN REACH. BED IN LOW POSITION. BY NURSING STATION. WILL CONTINUE TO MONITOR.
--- NOTE | 2019-08-08 07:59 | NUR ---
Shift report given, will conitnue to monitor notes and help with facilitating placement. New hold is needed and requested to be faxed.
--- NOTE | 2019-08-08 09:47 | NUR ---
OFFERED PT TO TAKE AM MEDS LOOKED AT ME AND SAID NOTHING. PT REMAINS IN A CATATONIC STATE. REFUSE ALL MEDICATION. WILL CONTINUE TO MONITOR. 1:1 AT BEDSIDE. BY NURSING STATION.
--- NOTE | 2019-08-08 14:25 | NUR ---
PT SITTING UP IN BED STARING AT THE T.V. ASKED HOW HE IS FEELING REMAINS NONVERBAL AND JUST STARES AWAY. ASKED IF HES ANXIOUS, REFUSE TO ANSWER. 1:1 AT BEDSIDE/BY NURSING STATION. WILL CONTINUE TO MONITOR.
--- NOTE | 2019-08-08 18:18 | NUR ---
NO ACUTE CHANGES AT THIS TIME, NO ACUTE RESP DISTRESS OR SOB NOTED. 1:1 AT BEDSIDE. ONCE AGAIN TRIED TO ENGAGE IN CONVERSATION WITH PATIENT, REFUSE TO ANSWER. REMAINS ON 5150 HOLD. NO SIGNS OF CHEST PAIN OR DISCOMFORT NOTED. PER 1:1 TOLERATED 100% OF DINNER. WILL ENDORSE TO INCOMING RN.
--- NOTE | 2019-08-08 19:44 | NUR ---
AWAKE AND ALERT, WATCHING TV. AMBULATED IN ROOM, GAIT STEADY. STILL WILL NOT RESPOND OR ANSWER ANY QUESTIONS. SELECTIVELY MUTE. BREATHING EVEN AND UNLABORED. SITTER IN ROOM.
--- NOTE | 2019-08-08 20:28 | NUR ---
MOTHER IN PT'S ROOM.
--- NOTE | 2019-08-08 21:25 | NUR ---
EYES CLOSED, BREATHING EVEN AND UNLABORED. PT'S MOTHER HAS ALREADY LEFT. NOTED EARLIER THAT PT WOULD SPEAK WITH HIS MOTHER.
--- NOTE | 2019-08-08 22:40 | NUR ---
EYES CLOSED, BREATHING EVEN AND UNLABORED ON ROOM AIR. PT WAS PACING IN ROOM EARLIER. SITTER IN ROOM.
--- NOTE | 2019-08-09 06:31 | NUR ---
EYES CLOSED, BREATHING EVEN AND UNLABORED, RR 18/MIN. SITTER IN ROOM.
--- NOTE | 2019-08-09 07:19 | NUR ---
EYES CLOSED, BREATHING EVEN AND UNLABORED. SITTER IN ROOM. ENDORSED TO NURSE DAVIS. ENDORSED PT HAS BEEN REFUSING VITAL SIGNS AND MEDICATIONS, PHYSICIANS ARE AWARE.
--- NOTE | 2019-08-09 08:48 | NUR ---
Received report from recenterer. Will continue to look for placement.
--- NOTE | 2019-08-09 09:02 | NUR ---
I WENT INTO HIS ROOM AND INTRODUCED MYSELF. HE WOULD NOT OPEN HIS EYES, HIS BREATHING WAS REGULAR AND HE WAS MOVING HIS FOOT FAST. WHEN I TRIED TO ASSESS HIM, HE COVERED HIMSELF WITH A BLANKET AND CROSSED HIS ARMS, WHEN I STARTED TO ASSESS HIS LUNGS, HE JUMPED OUT OF BED TO GO TO THE BATHROOM. WAS UNABLE TO ASSESS HIM. ALSO HE WOULD NOT TAKE HIS MEDICATIONS, HE WOULDNT OPEN HIS EYS OR ACKNOWLEDGE ME. NO C/O PAIN. NO VISIBLE SOB. MED SURG PATIENT. 1:1 SITTER AT DOORWAY. BRP SELF, HE ALSO WOULDNT TALK TO THE PSYCHIATRIST, HE GOT UP AND WENT TO THE BATHROOM AGAIN.
--- NOTE | 2019-08-09 10:25 | NUR ---
GAVE REPORT TO SID CEDILLO, PATIENT WAS MOVED TO ROOM 218B. 1:1 SITTER IN ROOM. PATIENT REMAINS NON VERBAL, I TOLD HIM WE WERE MOVING HIM BY BED TO ANOTHER ROOM AND HE DIDNT ANSWER, BUT HE ALLOWED US TO MOVE HIM BY BED.
--- NOTE | 2019-08-09 10:25 | NUR ---
RECEIVED PT FROM NURSE DAVIS. PT AMBULATED TO THE RESTROOM WELL. PT DOESNOT WANT TO TALK. REFUSED ASSESSMENT. NO IV ACCESS, REFUSING TO HAVE IV. SUPERVISOR BILLPOSTING DANNY AWARE ABOUT PT REFUSING ALL THE MEDICATIONS, IV , VITAL SIGNS AND ASSESSMENTS. DENIES ANY PAIN. SITTER AT BEDSIDE FOR PT 5150. SAFTEY PRECAUTIONS ARE IN PLACE. WILL MONITOR.
--- NOTE | 2019-08-09 11:20 | NUR ---
Received new 5150 hold. Will continue to look for placement.
--- NOTE | 2019-08-09 11:46 | NUR ---
Follow-up Nutrition Assessment: /March, PIERO BERG MR Dx: Suicidal, danger to self, 5150 PMHx: Schizophrenia Labs: no recent labs Meds: Ativan, Colace, morphine, zofran Diet: Regular PO Intake: (08/08) lunch 90%, breakfast 80%, (08/07) dinner 100%, lunch 5%, breakfast 60% Weights: (08/04) 68 kg, (08/09) 67.3 kg Skin: intact Von: 21 I/Os: (08/08) 2700/ output not documented Edema: unable to access (per shift reassessment) GI: Last BM: 08/08 RDN Visit (08/09): Patient was not ready to respond or communicate with me. Per NGUYEN Schneider, patient refuses to talk with everyone and therefore she is not aware about symptoms likes N/V/D/C. Estimated Nutritional Needs Based on current body weight 68 kg Energy: 7749-4724 kcal/d (25-30 kcal/kg) Protein: 68-82 g/d (1.0-1.2 g/kg) - preserve LBM Fluid: 4434-6170 ml/d (1 ml/kcal) or per doctor Nutrition Diagnosis 1. Inadequate oral intake related to patient not wanting to eat, possible poor appetite as evidenced by report from vasu. (ongoing) Intervention 1. Recommend continuing regular diet at this time. Monitor/Evaluate Goal: Have pt meet at least 75% of estimated needs Monitor: PO intake, Labs, GI function F/U in 7 days as low risk 08/16
--- NOTE | 2019-08-09 11:46 | NUR ---
Recommend continuing regular diet at this time.
--- NOTE | 2019-08-09 13:00 | NUR ---
PT ATE LUNCH AND SLEEPING THIS TIME. STABLE. REFUSED VITAL SIGNS. DANNY SUPERVISOR BORDER DEPARTMENT AWARE ABOUT THAT.
--- NOTE | 2019-08-09 17:30 | NUR ---
PT EATING DINNER. MOTHER AT BEDSIDE. STABLE. STILL REFUSING ALL THE MEDICATIONS, IVF AND VITAL SIGNS. SITTER AT BEDSIDE FOR SAFTEY. NO AGITATION NOTED.
--- NOTE | 2019-08-09 19:10 | NUR ---
PT RESTING IN BED COMFORTABLY, DENIES ANY PAIN. STABLE. PT STILL REFUSING TO TALK. GAVE REPORT TO STRAP CUTTING MACHINE OPERATOR NURSE.
--- NOTE | 2019-08-09 19:31 | NUR ---
RECEIVED PATIENT IN BED AWAKE NONVERBAL WITH NO SIGN OF ACUTE DISTRESS, BREATHING EASY AND NONLABOR SATTING AT 99% RA. PER AM SHIFT RN, PATIENT REFUSING ALL TREATMENT AND MEDICATIONS, AWARE. SITTER AT BEDSIDE. WILL CONTINUE TO MONITOR.
--- NOTE | 2019-08-10 01:50 | NUR ---
APPEAR TO BE SLEEPING THIS TIME BREATHING EASY AND NONLABOR. SITTER AT BEDSIDE, WILL CONTINUE TO MONITOR.
--- NOTE | 2019-08-10 05:01 | NUR ---
SLEPT AT LONG INTERVALS WITH NO INDICATION OF SUICIDAL IDEATION NOTED. CHECKED AT INTERVALS FOR NEEDS AND SAFETY.
--- NOTE | 2019-08-10 08:00 | NUR ---
PATIENT ALERT/AWARE. PASSIVE. DIDN'T ANSWER QUESTIONS. REFUSED ALL TREATMENT. REFUSED IV INSERTION. BUT PATIENT ABLE TO SELF FEEDING IF MEALS WAS IN FRONT TO HIM; ALSO PATIENT WAS BRP INDEPENDENTLY. NO S/S PAIN. SITTER AT BED SIDE.
--- NOTE | 2019-08-10 10:07 | NUR ---
Received report from mine shifter. Will continue to look for placement.
--- NOTE | 2019-08-10 13:38 | NUR ---
Called the following facilities: [facility], s/w [facility] SUP. No beds. [facility], s/w Roman. No beds. [facility], s[facility]w Satish. No beds. [facility], s/w Tsering. No beds, facility at capacity. [facility], s/w Sofie. No beds, unit is full.
--- NOTE | 2019-08-10 17:38 | NUR ---
CONDITION NO SIGNIFICANT CHANGE. TOLERATED REGULAR DIET. NO S/S OF DISCOMFORT. BRP OVER 10 TIMES PER SITTER. MOTHER AT BED SIDE NOW. PATIENT TOLD HIS MOTHER, HE HAD BM TODAY. STILL REFUSED CARES AND MEDS. SIDRA BUCKLEY AWARE OF. ENDORSED CARE TO [facility] NURSE.
--- NOTE | 2019-08-10 19:22 | NUR ---
RECEIVED PATIENT IN BED AWAKE NOT RESPONDING TO ANY QUESTION, CATATONIC BEHAVIOR. ABLE TO GO TO BATHROOM TO VOID. NO SIGN OF ACUTE DISTRESS, BREATHING EASY AND NONLABOR. PATIENT REFUSING ALL TREATMENTS AND MEDICATIONS, MD AWARE, WILL CONTINUE TO MONITOR. SITTER AT BEDSIDE.
--- NOTE | 2019-08-10 20:37 | NUR ---
DR ORTIZ CAME TO SEE THE PATIENT, 5150 RENEWED. MOTHER AT BEDSIDE AT THIS TIME.
--- NOTE | 2019-08-11 | NUR ---
APPEAR TO BE SLEEPING THIS TIME, BREATHING EASY AND NONLABOR. WILL CONTINUE TO MONITOR. SITTER AT BEDSIDE.
--- NOTE | 2019-08-11 00:46 | NUR ---
At this time there are still no vacancy at any of the facilities will conitnue to make calls , Noelle CEDILLOsmelter charger nurse made aware.
--- NOTE | 2019-08-11 03:46 | NUR ---
Still no beds available for placement , will endorsed to AM shift should no placement be found.
--- NOTE | 2019-08-11 05:23 | NUR ---
SLEPT AT LONG INTERVALS NO INDICATION OF SUICIDAL IDEATION NOTED. CHECKED AT INTERVLS FOR NEEDS AND SAFETY.
--- NOTE | 2019-08-11 07:13 | NUR ---
[facility] still actively working on finding placement for this pt. Per fast food shift supervisor no openings overnight. Will f/u with facilities. Will contact with any update.
--- NOTE | 2019-08-11 07:30 | NUR ---
RECEIVED HAND OFF REPORT FROM NIGHT NURSE. PATIENT IS SLEEPING AT THIS TIME. BREATHING REGULAR, 5150 HOLD RENEWED LAST NIGHT, CONTINUALLY LOOKING FOR PLACEMENT. CALL LIGHT WITHIN REACH, SITTER IN ROOM
--- NOTE | 2019-08-11 08:30 | NUR ---
PATIENT AWAKE AT THIS TIME, EYES OPEN SPONTANIOUSLY NOT MAKING EYE CONTACT. NOT ACKNOWLEDGING PRESENCE OF NURSE. NOT SPEAKING. PATIENT REFUSING AM MEDICATIONS, VS, LAB DRAW, IV , OR TO SPEAK WITH STAFF. PATIENT HAS BEEN MEDICALLY CLEARED BY CARE TEAM JUST [facility] ACC[facility]
--- NOTE | 2019-08-11 11:14 | NUR ---
F/U with contracted facilities: [facility]: s/w Kerwin No beds at this time. Packet on file for future openings. [facility]: Rang continuously, unable to leave message. [facility]: s/w Aniya No beds at this time [facility] Intake stated no beds. [facility]: Per Verónica, no beds at this time. [facility]: per Lesly, unable to accept pt at this time. Will continue to f/u, will contact with any updates.
--- NOTE | 2019-08-11 13:24 | NUR ---
PATIENT AWAKE, RIGHT SIDE LAYING, EYES OPEN, REFUSING TO SPEAK OR LOOK AT NURSE. RUKHSANA MICHAEL SAID THAT KENTONClemente REQUESTED A TOWEL AND THEN WENT INTO THE BATHROOM AND SHOWERED. SS CONSULTED TO [facility] TO LOOK FOR PLACEMENT FOR THIS PATIENT
--- NOTE | 2019-08-11 19:30 | NUR ---
PT RECEIVED AWAKE AND ALERT, WATCHING TV. PT SELECTIVELY MUTE AND REFUSES TO SPEAK WITH STAFF OR MAKE EYE CONTACT. MOTHER AT BEDSIDE. MED-SURG, NO S/S OF CP/PRESSURE OBSERVED. BREATHING IS EVEN AND UNLABORED ON RA, NO RESP DISTRESS NOTED. NO N/V PRESENT. VOIDS FREELY, BRP. AMBULATORY WITH STEADY GAIT. NO S/S OF PAIN OBSERVED. PT REFUSES NURSING CARE. NO IV SITE PRESENT, PT REFUSING REINSERTION. PT ON 5150 HOLD FOR SI, SITTER AT BEDSIDE. NO ACUTE DISTRESS NOTED. CALL LIGHT WITHIN REACH. WILL CONT TO MONITOR.
--- NOTE | 2019-08-11 19:32 | NUR ---
[facility] NOC shift is aware of patient and will continue to look for bed placement.
--- NOTE | 2019-08-11 20:10 | NUR ---
REPORT GIVEN TO KAZ CEDILLO FOR CONTINUITY OF CARE. ALL QUESTIONS AND CONCERNS ADDRESSED.
--- NOTE | 2019-08-11 20:25 | NUR ---
PT TRANSFERRED TO [facility] A VIA WHEELCHAIR ACCOMPANIED BY RN, SITTER, AND PT'S MOTHER. ALL BELONGINGS WITH PT. NO ACUTE DISTRESS UPON TRANSFER. SITTER AT BEDSIDE.
--- NOTE | 2019-08-11 20:29 | NUR ---
RECEIVED PT FROM PREVIOUS NURSE. PT IN NO ACUTE DISTRESS. MOTHER AT BEDSIDE. CALL LIGHT WITHIN REACH. BED IN LOWEST POSITION. SITTER AT BEDSIDE. WILL CONTINUE TO MONITOR.
--- NOTE | 2019-08-11 22:15 | NUR ---
Follow up calls were made to contracted psych facilities, still no beds available for tonight. [facility], spoke with Dick. [facility], spoke with Crissy. [facility], no answer @ [phone], left message. [facility], spoke with Jose D. [facility], spoke with Magdalene. [facility], spokew pedrito Alarcon. [facility], spoke with Keila. [facility], [facility], spokew pedrito Norris. Unit will be notified when a bed becomes available.
--- NOTE | 2019-08-12 02:49 | NUR ---
PT RESTING IN BED. RR EVEN AND UNLABORED. IN NO ACUTE DISTRESS. CALL LIGHT WITHIN REACH. BED IN LOWEST POSITION. SITTER AT BEDSIDE. WILL CONTINUE TO MONITOR.
--- NOTE | 2019-08-12 05:45 | NUR ---
PT REFUSED AM VITAL SIGNS.
--- NOTE | 2019-08-12 07:20 | NUR ---
RECEIVED PT FROM HECTOR RN. PT AWAKE/ALERT, UNABLE TO ASSESS ORIENTATION. PT SELECTIVELY MUTE. STOIC. PT AMBULATING TO RESTROOM. DRINKING WATER. REFUSED AM LAB, REFUSES VS AT THIS TIME. REFUSES IV/IV THERAPY. UNCOOPERATIVE. NO S/S OF ACUTE DISTRESS. NO SOB ON ROOM AIR. NO COMPLAINT OF PAIN. SITTER AT BEDSIDE. [address] BED IN LOW POSITION. CALL LIGHT WITHIN REACH. PT IN ROOM CLOSE TO NURSES STATION. WILL CONTINUE TO MONITOR.
--- NOTE | 2019-08-12 07:43 | NUR ---
No updates on placement per nightshift, contacted the following facilities: [facility]: s/w Elena, [facility]: s/w Crissy, facility is full for the night. [facility]: No answer, left voicemail. [facility]: s/w Jose D No beds available. [facility]: s/w Elizabet, states no available beds. [facility]: s/w Agnes, states no beds available, packet on file. [facility]: s/w Rose, states possible d/cs in the morning, requests to call back during AM shift. [facility]: s/w Richi, no beds at this time. Day shift will continue to actively work on finding placement. Will contact with any updates.
--- NOTE | 2019-08-12 13:02 | NUR ---
PT LAYING IN BED. AWAKE, ALERT. REFUSES TO RESPONDS TO QUESTIONS. EYES FOLLOW. SELECTIVELY MUTE. ABLE TO MAKE NEEDS KNOWN. NO S/S OF ACUTE DISTRESS. REFUSES MEDICATIONS AND VITAL SIGNS. REFUSES IV/IV THERAPY. NO S/S OF ACUTE DISTRESS. NO SOB ON ROOM AIR. NO C/O OF PAIN. SITTER AT BEDSIDE. [address] BED IN LOW POSITION. CALL LIGHT WITHIN REACH. PT IN ROOM CLOSE TO NURSES STATION. WILL CONTINUE TO MONITOR.
--- NOTE | 2019-08-12 14:08 | NUR ---
F/U with contracted facilites regarding placement: [facility]: s/w Miriam, no beds at this time, possible openings later today, packet on file for waitlist. [facility]: s/w Cristian, states no openings, packet on file for waitlist. [facility]: s/w Randall, states no openings today, completely saturated. [facility]: s/w Tri No openings today. [facility]: rang continously, unable to leave message, packet faxed. [facility]: s/w Maia, no beds at this time , packet on file. Will continue to look for placement. Will contact with any updates.
--- NOTE | 2019-08-12 18:32 | NUR ---
PT LAYING IN BED. STOIC, ABLE TO FOLLOW COMPLEX COMMANDS. CONTINUES TO BE SELECTIVELY MUTE. NO S/S OF ACUTE DISTRESS. VISITORS AT BEDSIDE. NO S/S OF PAIN. NO VERBALIZATION OF SUICIDAL IDEATION AT THIS TIME. SITTER AT BEDSIDE. [address] REFUSED VS. NO N/V. NO SOB ON ROOM AIR. NO CHEST PAIN. APPEARS CALM AT THIS TIME. BED IN LOW POSITION. CALL LIGHT WITHIN REACH. WILL ENDORSE TO ONCOMING SHIFT.
--- NOTE | 2019-08-12 20:13 | NUR ---
Shift report given, will continue to monitor notes and help with placement
--- NOTE | 2019-08-12 20:20 | NUR ---
PT CURRENTLY RESTING IN BED, NO ACUTE DISTRESS. AWAKE AND ALERT, UNABLE TO ASSESS ORIENTATION, PT REFUSING TO SPEAK AND REFUSING MAJORITY OF ASSESSMENT. NO TELE, MED/SURG. NO EDEMA NOTED. NO RESPIRATORY DISTRESS NOTED. LAST BM 08/10/19. VOIDING WELL. AMBULATORY. SKIN INTACT. NO IV ACCESS AT THIS TIME, PT REFUSING. SITTER AT BEDSIDE. BED IN LOWEST POSITION, SIDE RAILS UP X2, CALL LIGHT WITHIN REACH. WILL CONTINUE TO MONITOR.
--- NOTE | 2019-08-13 00:11 | NUR ---
PT CURRENTLY RESTING IN BED, NO ACUTE DISTRESS. WILL CONTINUE TO MONITOR.
--- NOTE | 2019-08-13 05:48 | NUR ---
PT SLEPT PERIODICALLY THROUGHOUT NIGHT, NO ACUTE DISTRESS. REFUSING VITAL SIGNS. NO SIGNIFICANT CHANGES. BED IN LOWEST POSITION, SIDE RAILS UP X2, CALL LIGHT WITHIN REACH. SITTER AT BEDSIDE. WILL ENDORSE CARE TO ONCOMING NURSE.
--- NOTE | 2019-08-13 09:15 | NUR ---
PATIENT MADE AWARE OF MEDICATIONS THAT ARE DUE. PATIENT GLANCED BUT LOOKED AWAY WITH NO VERBAL RESPONSE. INFORMED HIM OF THE NEED FOR MEDICATIONS AND IF HE IS WILLING TO TAKE. NO RESPONSE. INFORMED HIM TO LET ME KNOW IF HE CHANGES HIS MIND. SITTER AT BEDSIDE. WILL CONT TO MONITOR.
--- NOTE | 2019-08-13 12:05 | NUR ---
SPOKE TO MOTHER ON PHONE, WANTS SOMEONE TO MAKE ARRANGEMENTS FOR PATIENT TO TAKE A SHOWER ROOM HAS NO SHOWER IN RESTROOM. SHOWER ROOM IN RM 242 PREPARED AND PATIENT MADE AWARE, NO VERBAL RESPONSE, AMBULATED TO RESTROOM AND TOOK A SHOWER, MERCHANT PATROLLER SUPERVISING/SITTING. PATIENT NOW BACK IN ROOM 244A SAFELY, NO SIGN OF ACUTE DISTRES. SITTER AT BEDSIDE.
--- NOTE | 2019-08-13 13:16 | NUR ---
f/u with contracted facilities: [facility]: No beds at this time, packet on file. [facility]: No beds, requests not to fax packet until open beds. [facility]: No openings today. [facility]: No answer, packet refaxed. [facility]: No openings at this time, packet on file. [facility]: Packet on file. No beds.
--- NOTE | 2019-08-13 18:25 | NUR ---
MOTHER/FAMILY AT BEDSIDE. INTRODUCATION MADE AND INFORMED HER AND PATIENT THAT PATIENT MAY BE MOVED TO A DIFFERENT ROOM DURING CHANGE OF SHIFT. COOPERATIVE AND AGREEABLE. PATIENT REFUSED MEDS AND VITAL SIGNS THROUGHOUT DAY. NO SIGN OF ACUTE DISTRESS OR SIGNIFANT CHANGE IN CONDITION. WILL CONT TO MONITOR AND ENDORSE TO NOC NURSE.
--- NOTE | 2019-08-13 19:20 | NUR ---
REPORT GIVEN TO NOC NURSE, PATIENT MOVED TO ROOM 242A.
--- NOTE | 2019-08-13 19:30 | NUR ---
RECIEVED PATIENT AT START OF SHIFT RESTING IN BED. RESPOND SELECTIVELY. APPEARS ORIENTED. NO SOB ON RA. DENIES PAIN. UNCCOPERATIVE WITH CARE, REFUSES PHYSICAL ASESSMENT. NO IV ACCESS. MD AWARE. SITTER AND FAMILY AT BEDSIDE. CALL LIGHT AND BEDSIDE TABLE WITHIN REACH.
--- NOTE | 2019-08-14 00:15 | NUR ---
PATIENTS EYES ARE CLOSED, BREATHS EVEN AND REGULAR. NO SOGNS OF DISTRESS. SITTER AT BEDSIDE. CALL LIGHT AND BEDSID ETABLE WITHIN REACH.
--- NOTE | 2019-08-14 00:33 | NUR ---
Spoke with nurse Dasha, she will fax updated hold to continue in pursuit of placement
--- NOTE | 2019-08-14 06:16 | NUR ---
PATIENTS EYES ARE CLOSED, BREATHS EVEN. NO SOB ON RA. NO IV ACCESS. BED LOCKED AND IN LOWEST POSIITON. CALL LIGHT WITHIN REACH. SITTER AT BEDSIDE. WILL ENDORSE CARE TO DAYSHIFT NURSE.
--- NOTE | 2019-08-14 08:35 | NUR ---
PATIENT LYING IN BED SUPINE, AWAKE, NOT ANSWERING MOST OF MY QUESTIONS. INFORMED HIM OF MEDICATIONS THAT ARE DUE, REFUSING TO TAKE. NO SIGN OF PAIN OR DISCOMFORT, NO SIGN OF ACUTE DISTRESS. NO IV ACCESS, REFUSED. CALL LIGHT WITHIN REACH, BED AT LOWEST POSITION. SITTER AT BEDSIDE.
--- NOTE | 2019-08-14 09:40 | NUR ---
PATIENT REQUESTING TO SHOWER, TOWELS AND BATHROOM SUPPLIED PROVIDED. SITTER IN ROOM. WILL CONT TO MONITOR.
--- NOTE | 2019-08-14 12:30 | NUR ---
RELIEVING UNIT CONTROL CLERK FOR BREAK. PATIENT IN BED WATCHING TV. LUNCH MEAL AT BEDSIDE TRAY, PATIENT DOES NOT WANT TO EAT YET. NO SIGN OF ACUTE DISTRESS. WILL CONT TO MONITOR.
--- NOTE | 2019-08-14 16:03 | NUR ---
REPORT GIVEN TO NGUYEN PINEDA TO RESUME DAY SHIFT CARE FOR PATIENT, NO SIGNFICANT CHANGE IN CONDITION.
--- NOTE | 2019-08-14 16:08 | NUR ---
ASSUMED CARE OF PATIENT. RECIEVED REPORT FROM KIP CEDILLO. PATIENT RESTING IN BED WITH NO COMPLAINTS OF PAIN OR DISCOMFORT. NO APPARENT DISTRESS NOTED. PATIENT HAS FLAT AFFECT AND NOT RESPONSIVE TO QUESTIONS. SITTER REMAINS AT BEDSIDE. WILL CONTINUE TO MONITOR.
--- NOTE | 2019-08-14 18:39 | NUR ---
PATIENT SEEN RESTING IN BED WITH NO COMPLAINTS OF PAIN OR DISCOMFORT. PATIENT ENDORSING SOME DIFFICULTY BREATHING. SHORTNESS OF BREATH NOTED. RESPIRATORY THERAPY CALLED FOR BREATHING TREATMENT.
--- NOTE | 2019-08-14 18:42 | NUR ---
PATIENT IN BED WITH NO COMPLAINTS OF PAIN OR DISCOMFORT. NO APPARENT DISTRESS NOTED. SITTER AT BEDSIDE. WILL ENDORSE CARE TO ONCOMIGN RN .
--- NOTE | 2019-08-14 19:30 | NUR ---
PT RESTING IN BED WITH FAMILY AT BEDSIDE, PT IS IN NO ACUTE DISTRESS AT THIS TIME, ASSESMENT PERFORMED AT THIS TIME, PT REFUSED PARTS OF ASSESSMENT (SEE SHIFT ASSESSMENT) PT DENIES SOB OR PAIN AT THIS TIME, PT REFUSES IV ACESS, AND REFUSES VITAL SIGNS, SITTER AT BEDSIDE, SAFETY PRECAUTIONS IN PLACE, WILL CONTINUE TO MONITOR.
--- NOTE | 2019-08-14 22:35 | NUR ---
PT RESTING IN BED WITH EYES CLOSED, NO SIGNS OF PAIN OR SOB, RESPIRATIONS EVEN AND UNLABORED, SITTER AT BEDSIDE, ALL NEEDS ATTENDED TO AT THIS TIME, SAFETY PRECAUTIONS IN PLACE, WILL CONTINUE TO MONITOR
--- NOTE | 2019-08-15 00:40 | NUR ---
PT RESTING WITH EYES CLOSE, NO ACUTE SIGNS OF DISTRESS NOTED, RESPIRATIONS EVEN AND UNLABORED, SITTER AT BEDSIDE, SAFETY PRECAUTIONS IN PLACE, WILL CONTINUE TO MONITOR
--- NOTE | 2019-08-15 02:39 | NUR ---
PT LYING ON LEFT SIDE WITH NO ACUTE DISTRESS, PT DENIES PAIN OR SOB AT THIS TIME, EASILY AROUSABLE TO VERBAL STIMULI, SAFETY PRECAUTIONS IN PLACE, SITTER AT BEDSIDE, WILL CONTINUE TO MONITOR
--- NOTE | 2019-08-15 05:24 | NUR ---
PT RESTED COMFORTABLY THROUGH THE NIGHT, PT REFUSED ALL TREATMENT AND ASSESSMENT, SITTER REMAINED AT BEDSIDE THROUGHOUT SHIFT, PT DENIED SOB OR PAIN THROUGHOUT NIGHT, PT AMBULATED TO RR 3 TIMES DURING SHIFT, ALL NEEDS ATTENDED TO, SAFETY PRECAUTIONS MAINTAINED DURING SHIFT, WILL CONTINUE TO MONITOR AND ENDORS CARE
--- NOTE | 2019-08-15 09:11 | NUR ---
Change of shift report given, will continue to monitor notes and help facilitate placement
--- NOTE | 2019-08-15 11:48 | NUR ---
PATIENT RESTING IN BED, NO SIGN OF ACUTE DISTRESS. OFFERED IF PATIENT WOULD LIKE TO SHOWER NOW, PATIENT EXPRESSES DESIRE TO. BATHROOM SUPPLIES PROVIDED. SITTER IN ROOM SUPERVISING. WILL CONT TO MONITOR.
--- NOTE | 2019-08-15 16:18 | NUR ---
Spoke with nurse Huber, nursing notes, labs and updated hold is needed for placement. [facility] interested however needs updated information. She is calling the physician to update everything
--- NOTE | 2019-08-15 16:43 | NUR ---
PATIENT REFUSED LAB DRAW ORDERED BY COVER INSPECTOR FOR NOW. RISKS/BENEFITS DISCUSSED WITH PATIENT, HOWEVER PATIENT STILL REFUSING. CHARGE NURSE AWARE. SITTER AT BEDSIDE.
--- NOTE | 2019-08-15 17:02 | NUR ---
RECEIVED A CALL FROM [facility] REGARDING 5150 HOLD. STATED THAT THEY MAY HAVE A BED AT [place], BUT THEY WERE REQUESTING NEW HOLD SINCE PREVIOUS ONE AND THEY WERE ALSO REQUESTING UPDATED LABS. CALLED BOARD CERTIFIED ARTS THERAPIST INA RECEIVED ORDERS FOR LABS. PT REFUSED LABS, SPOKE WITH PT AND MADE PT AWARE THAT WE MIGHT HAVE A BED BUT REQUIRED PT TO ALLOW FOR NEW LABS PT DID NOT RESPOND VERBALLY BUT ONLY NODDED "NO" AND RAISED ARMS BEHIND HIS HEAD. [facility] CALLED BACK SPOKE WITH ELISABETH, STATED SHE STILL NEEDED NEW HOLD TO SEND OUT FOR BED REQUEST. WILL DISCUSS WITH PHLEBOTOMY MANAGER.
--- NOTE | 2019-08-15 17:35 | NUR ---
EVALUATION PT FOR RENEW 5150 HOLD STATUS, PT STILL PRESENT CATATONIC, SELECTIVE MUTE. REFUSE TO TALK, REFUSE MEDICATION AND TREATMENT. PT IS UNABLE TO TAKE CARE HIMSELF AT THIS TIME AND FAMILY IS UNABLE TO TAKE CARE OF HIM. AND PT HAS SUICIDAL ATTEMPPED RECENTLY. CONTINUE THE 5150 HOLD TO GRAVELY DISABLE AND DANGER TO HIMSELF AT THIS MOMENT.
--- NOTE | 2019-08-15 17:53 | NUR ---
MOTHER AT BEDSIDE, BROUGHT OUTSIDE FOOD FOR PATIENT. PATIENT AND MOTHER SPEAKING TO EACH OTHER , NO SIGN OF ACUTE DISTRESS. SITTER AT BEDSIDE.
--- NOTE | 2019-08-15 19:36 | NUR ---
SHIFT REASSESSMENT DONE.PATIENT ALERT AND ORIENTED.HAS FLAT AFFECT,5151,SITTER AT BEDSIDE FOR SAFETY.MEDSURG.OUTSIDE FOOD OK,CLAIMED HE HAD BM TODAY.SKIN INTACT.REFUSES LAB WORKS TODAY,NO IV LINE.SDC ORDERED.CALL LIGHT IN REACH.
--- NOTE | 2019-08-15 20:46 | NUR ---
PM HS MED GIVEN PRN.CONTINOUS TO HAVE FLAT AFFECT.QUIET,SAFE ENVIRONMENT MAINTAINED,SITTER AT BEDSIDE FOR SAFETY.
--- NOTE | 2019-08-15 23:39 | NUR ---
CHCKED AT INTERVALS FOR NEEDS AND SAFETY.MAX LIGHT IN REACH.
--- NOTE | 2019-08-16 04:17 | NUR ---
Still no beds available , will endorsed to AM shift to continue to look for placement.
--- NOTE | 2019-08-16 05:18 | NUR ---
I AND O MEASURED.REFUSED MOST OF CARE,FLAT AFFECT.WILL CONTINUE PLAN OF CARE.
--- NOTE | 2019-08-16 07:30 | NUR ---
RECEIVED PATIENT IN BED WITH 1-1 SITTER AT BEDSIDE. PATIENT APPEARS TO BE RESTING WELL, DID AROUSE EASILY AND ANSWERED NO WHEN ASKED IF HE WOULD TAKE HIS MEDICATIONS. CONSUMED BREAKFAST TRAY WELL. AMBULATES TO THE BATHROOM PRN WITH STEADY GAIT, REFUSED IV ACCESS. NO ACUTE DISTRESS NOTED. AWAITING BED AT [facility].
--- NOTE | 2019-08-16 11:41 | NUR ---
Follow-up Nutrition Assessment: 242/A [facility] LR Dx: suicidal, danger to self, 5150 PMHx: schizophrenia Labs: no recent labs Meds: aspirin, Colace, nitrostat, zofran Diet: regular PO Intake: (08/15) 100% all meals, (08/14) 100% all meals Weights: (08/15) 68 kg, (08/16) 70.5 kg I/Os: (08/15) 960/ output not documented Skin: intact Von: 22 Edema: none GI: good appetite, family brings in food Last BM: 08/15 RD Note (08/16): Patient was responding to my questions today and said that he has good appetite and ate all of his breakfast this morning. He said that he does not have any N/V/D/C at this time. Per bed huddles, pt is waiting psych placement. Estimated Nutritional Needs Based on body weight (68 kg) Energy:3011-4626 kcal/day (25-30 kcal/kg for maintenance) Protein: 68-82 g/day (1.0-1.2 g/kg for maintenance) Fluid:7703-4112 mL/day (1 mL/kcal) or per MD Nutrition Diagnosis: 1. Inadequate oral intake related to patient not wanting to eat, possible poor appetite as evidenced by report from sitter. (improving- documented PO >75%) Intervention: 1. Recommend continuing regular diet at this time. Monitor/Evaluate: Goal: Have pt meet at least 75% of estimated needs Monitor: PO intake, Labs, GI function F/U in 7 days as low risk 08/23
--- NOTE | 2019-08-16 11:41 | NUR ---
1. Recommend continuing regular diet at this time.
--- NOTE | 2019-08-16 13:43 | NUR ---
PATIENT REMAINS IN BED. APPEARS TO BE SLEEPING AT THIS TIME. NO CHANGE IN CONDITION NOTED. 1-1 SITTER AT BEDSIDE.
--- NOTE | 2019-08-16 15:41 | NUR ---
PATIENT REMAINS IN BED WITH 1-1 SITTER AT BEDSIDE. NO CHANGE IN CONDITION NOTED.
--- NOTE | 2019-08-16 18:02 | NUR ---
PATIENT REMAINS IN BED. ALERT, CONTINUES TO HAVE SELECTIVE VERBALIZATION. APPETITE VERY GOOD. UP TO THE BATHROOM PRN. NO ACUTE DISTRESS NOTED.
--- NOTE | 2019-08-16 18:03 | NUR ---
Called the following facilities: [facility] no beds [facility] s/w Sofie no beds [facility] s/w [place] no beds [facility] s/w [place] no beds but packet fax for wait list [facility] s/w Chris no beds but packet fax for wait list
--- NOTE | 2019-08-16 19:54 | NUR ---
AWAKE AND ALERT, WATCHING TV. SELECTIVELY MUTE. DID MAKE EYE CONTACT WITH THIS NURSE BUT WILL NOT TALK. BREATHING EVEN AND UNLABORED ON ROOM AIR. MOTHER AT BEDSIDE, SITTER IN ROOM
--- NOTE | 2019-08-16 20:06 | NUR ---
REFUSED VITAL SIGNS TAKING, INFORMED DR. MANN
--- NOTE | 2019-08-16 21:55 | NUR ---
[facility]-fax packet for review
--- NOTE | 2019-08-16 22:12 | NUR ---
EYES CLOSED, BREATHING EVEN AND UNLABORED. BED IN LOWEST POSITION. SITTER IN ROOM.
--- NOTE | 2019-08-16 23:22 | NUR ---
EYES CLOSED, BREATHING UNLABORED. SITTER IN ROOM. ENDORSED TO NURSE MAURO
--- NOTE | 2019-08-16 23:23 | NUR ---
CARE ASSUMED. PT RESTING COMFORTABLY IN BED. NO ACUTE DISTRESS NOTED. SITTER AT BEDSIDE. WILL CONTINUE TO MONITOR.
--- NOTE | 2019-08-17 06:47 | NUR ---
PT SLEPT IN INTERVALS THROUGHOUT THE SHIFT. NO ACUTE CHANGES NOTED. ALL NEEDS TENDED TO AND MET. REFUSING VITAL SIGNS AND MEDICATIONS. NO IV ACCESS, MD AWARE. SITTER AT BEDSIDE. BED IN LOWEST POSITION. SIDE RAILS UPX2. CALL LIGHT WITHIN REACH. WILL ENDORSE TO ONCOMING SHIFT.
--- NOTE | 2019-08-17 07:52 | NUR ---
PT LYING IN BED EYES CLOSED, AROUSABLE TO VOICE. BREATHING EQUAL/ UNLABORED ON RA. PT REFUSED ASSESSMENT/ AND STATED HE WAS GOING TO SLEEP. BED IN LOW POSITION, CALL LIGHT IN REACH, SITTER AT BED SIDE, WILL CONTINUE TO MONITOR
--- NOTE | 2019-08-17 10:24 | NUR ---
Received report from PM shift. Will continue to follow up with surrounding facilities to locate placement
--- NOTE | 2019-08-17 12:07 | NUR ---
PT LYING IN BED WITH COVERS PULLED UP OVER HEAD. PT MOVING HIS LEGS. PT REFUSING TO COMMUNICATE/ SPEAK WITH STAFF. NO ACUTE DISTRESS. NO IV ACCESS. BED IN LOW POSITION, CALL LIGHT IN REACH, SITTER AT BED SIDE, SAFETY PRECAUTIONS MAINTAINED. WILL CONTINUE TO MONITOR
--- NOTE | 2019-08-17 18:32 | NUR ---
PT LYING IN BED A/A. RESPIRATIONS EQUAL/UNLABORED ON RA. NO IV ACCESS. NO ACUTE DISTRESS NOTED. BED IN LOW POSITION, CALL LIGHT IN REACH, FAMILY AT BED SIDE, SITTER AT BED SIDE. WILL ENDORSE TO ON COMING NURSE
--- NOTE | 2019-08-17 19:20 | NUR ---
RECEIVED PT FROM PREVIOUS SHIFT NURSE. PT AWAKE/ALERT, FLAT AFFECT. MED SURG PT. NO SOB/DIFFICULTY BREATHING, ON RA. AMBULATORY, NO WEAKNESS NOTED. NO IV ACCESS. BED IN LOWEST POSITION. CALL LIGHT WITHIN REACH. SITTER AT BEDSIDE. MOTHER AT BEDSIDE. WILL CONTINUE TO MONITOR.
--- NOTE | 2019-08-18 03:15 | NUR ---
PT RESTING IN BED. RR EVEN AND UNLABORED. IN NO ACUTE DISTRESS. CALL LIGHT WITHIN REACH. BED IN LOWEST POSITION. WILL CONTINUE TO MONITOR.
--- NOTE | 2019-08-18 08:01 | NUR ---
[facility] still actively working on finding placement for this pt. Will continue to f/u with contracted facilities. Will contact with any updates. No openings per locomotive mechanic apprentice
--- NOTE | 2019-08-18 09:26 | NUR ---
PATIENT REFUSED MEDICATIONS AT THIS TIME, RESTING UNDER THE COVERS IN HIS BED. DENIED ANY NEEDS AT THIS TIME.
--- NOTE | 2019-08-18 13:58 | NUR ---
Pt has been accepted at [facility] Unit [address], bed 1005-B Accepting MD: Dr. Prescott Number for Report: [phone] Requests call for report after 14:15. Will notify unit
--- NOTE | 2019-08-18 14:49 | NUR ---
REPORT GIVEN TO RADHA CEDILLO AT [facility] [place]. EXPECTED OBSTETRICS NURSE IS 1600, WILL CONFIRM WITH CM.
--- NOTE | 2019-08-18 16:13 | NUR ---
[facility] ETA 1630, PT MADE AWARE OF TRANSFER, PATIENT'S MOTHER ALSO MADE AWARE OF TRANSFER AT THIS TIME. WILL CONTINUE TO MONITOR.
--- NOTE | 2019-08-18 16:38 | NUR ---
REPORT GIVEN TO [facility] UINT 250 AT THE BEDSIDE, PATIENT BELONGINGS COLLECTED, [facility] SENT WITH DISCAHRGE PACKET.
== END 2019-08-18 16:40 | DRG 750 ==
LOC: ED 09:58 → MU 08-02 10:42 → IC 08-02 10:42 → MU 08-02 19:30
PROVIDERS: Specialist; ADMIT Internal Medicine
DX: F20.9 Schizophrenia, unspecified (principal); F11.20 Opioid dependence, uncomplicated; R45.851 Suicidal ideations; F15.20 Other stimulant dependence, uncomplicated; M94.0 Chondrocostal junction syndrome [Tietze]; F94.0 Selective mutism; Z91.5 Personal history of self-harm; Z68.1 Body mass index [BMI] 19.9 or less, adult
CPT/HCPCS: G0378; G0480; J2060; J7030; Q0092